=== PATIENT | male | born 1975 | race Caucasian/White ===

== ENCOUNTER 2024-06-09 08:21 | Outpatient (CLI) | payer BC, SELFPAY ==
--- NOTE | ~2024-06-09 | XR_ITS ---
EXAMINATION: XR shoulder RT min 2V DATE: 06/09/2024 08:57 INDICATION: Right shoulder pain TECHNIQUE: AP internally and externally rotated, AP oblique externally rotated and transscapular Y vi ews of the right shoulder were obtained. COMPARISON: None FINDINGS: Normal alignment. No fracture. Glenohumeral joint is normal. Moderate right acromioclavicular osteoa rthritis. Soft tissues are unremarkable. Visualized portion of the right lung are clear. IMPRESSION: Moderate right acromioclavicular osteoarthritis. Reviewed, dictated and finalized at location B.
== END 2024-06-09 08:22 | disposition home or self-care (01) ==
PROVIDERS: PCP Nurse Practitioner; Visit Provider Nurse Practitioner
DX: M19.011 Primary osteoarthritis, right shoulder (principal)
CPT/HCPCS: 73030

== ENCOUNTER 2025-04-09 02:08 | Day surgery (SDC) | payer BC, SELFPAY ==
[2025-03-23 14:23] VITALS: BMI 24.4
[2025-04-09 07:37] VITALS: BP 131/90; PULSE 85; RESP 16; TEMP 36.5; O2SAT 100
[2025-04-09] MEDS: LACTATED RINGERS 1,000 ML 150 ML IV CONT (07:45)
--- NOTE | 2025-04-09 07:52 | P.PNAN_ITS ---
Anes - Initial Pre Proc Eval Procedure: Operation Date: 04/09/25 09:00 Proposed Procedures p Screening Colonoscopy - Oliver Downing MD Date/Time: 04/09/25 07:52 Surgeon: Oliver Downing MD Pre Op Diagnosis: Encounter for screening for malignant neoplasm of Patient Data Age: 49 Gender: M Height: 1.8 m Weight: 80.3 kg Last Vital Signs Temp 36.5 C 04/09/25 07:37 Pulse 85 04/09/25 07:37 Resp 16 04/09/25 07:37 BP 131/90 04/09/25 07:37 Pulse Ox 100 04/09/25 07:37 O2 Del Method Room Air 04/09/25 07:37 Allergies Allergy/AdvReac Type Severity Reaction Status Date / Time No Known Allergies Allergy Verified 04/09/25 07:35 Home Medications ?Medication ?Instructions ?Recorded ?Confirmed ?Type valacyclovir 1 gram tablet 2,000 mg (2 x 1 gram) PO Q12H PRN 02/22/24 03/23/25 Rx (Valtrex) oral lesions #36 tabs bupropion HCl 150 mg 24 hr tablet, 150 mg PO QAM #90 tabs 12/06/24 04/09/25 Rx extended release lisinopril 40 mg tablet 40 mg PO DAILY #90 tabs 12/06/24 04/09/25 Rx alprazolam 0.25 mg tablet 0.25 mg PO DAILY PRN anxiety #90 01/18/25 04/09/25 Rx tabs Patient hx anesthesia problems: none Family hx anesthesia problems: none Results Review: All pre-operative results and documents have been reviewed as part of the pre- operative evaluation. [facility] Past Medical History Medical History Hypertension Allergies Family History Family History Mother Hypertension Father Hypertension Social History Social History (Updated 04/09/25 @ 07:57 by Gaston Turcios DO) Smoking status: Never smoker Second hand tobacco smoke exposure: Yes Alcohol intake: current Drinks per week: 10 Alcohol use details: 1-2 drinks/day Substance use: never Substance use type: does not use Current Housing: Decline to Answer Concerned About Future Housing: Decline to Answer Difficulty Paying Gas/Electric Bills: Decline to Answer Difficulty Paying for Meds: Decline to Answer Currently Unemployed: Decline to Answer Education: Decline to Answer Difficulty w/ Childcare or Family Care: Decline to Answer Living arrangements: with family Spiritual care concerns: No Anes - Eval Final PreProcedure Day of Procedure 04/09/25 07:52 Patient weight: normal Heart: regular rate and rhythm Lungs: clear to auscultation and normal air movement Airway: Mallampati scale class II Neurological: alert and oriented Last oral intake: >/= 8 hours ASA classification: III Emergent: no Anesthetic plan: proceed Anesthesia type and monitoring: general GIVS and standard monitoring Results Review: All pre-operative results and documents have been reviewed as part of the pre- operative evaluation. Informed Consent: The patient's anesthetic plan and its attendant risks and benefits were discussed with the patient/family/POA. Questions were solicited and answers provided to the satisfaction of the patient/family/POA.
--- NOTE | 2025-04-09 08:13 | PM.HPGS ---
History of Present Illness History of Present Illness Consent: Risks, benefits, and alternatives have been discussed and questions answered. Patient agrees to proceed with procedure. Chief complaint: Encounter for screening for malignant neoplasm of Narrative: Jonatan Lazo is a 49 year old male here for first screening colonoscopy Review of Systems Review of Systems: All systems reviewed & are unremarkable except as noted in HPI and below PMFSH Past Medical History Medical History Hypertension Allergies Family History Family History Mother Hypertension Father Hypertension Social History Social History (Updated 04/09/25 @ 07:57 by Gaston Turcios, ) Smoking status: Never smoker Second hand tobacco smoke exposure: Yes Alcohol intake: current Drinks per week: 10 Alcohol use details: 1-2 drinks/day Substance use: never Substance use type: does not use Current Housing: Decline to Answer Concerned About Future Housing: Decline to Answer Difficulty Paying Gas/Electric Bills: Decline to Answer Difficulty Paying for Meds: Decline to Answer Currently Unemployed: Decline to Answer Education: Decline to Answer Difficulty w/ Childcare or Family Care: Decline to Answer Living arrangements: with family Spiritual care concerns: No Meds Home Medications and Allergies Home Medications ?Medication ?Instructions ?Recorded ?Confirmed ?Type valacyclovir 1 gram tablet 2,000 mg (2 x 1 gram) PO Q12H PRN 02/22/24 03/23/25 Rx (Valtrex) oral lesions #36 tabs bupropion HCl 150 mg 24 hr tablet, 150 mg PO QAM #90 tabs 12/06/24 04/09/25 Rx extended release lisinopril 40 mg tablet 40 mg PO DAILY #90 tabs 12/06/24 04/09/25 Rx alprazolam 0.25 mg tablet 0.25 mg PO DAILY PRN anxiety #90 01/18/25 04/09/25 Rx tabs Allergies Allergy/AdvReac Type Severity Reaction Status Date / Time No Known Allergies Allergy Verified 04/09/25 07:35 Vital Signs Vital Signs - 24 hr 04/09/25 07:37 Temperature 97.7 F Pulse Rate 85 Respiratory Rate 16 Blood Pressure 131/90 Pulse Oximetry 100 Oxygen Delivery Room Air Exam Const: General: comfortable and no acute distress HENMT: Face/Nose/Sinus: Normal nares present Eyes: General: appearance normal, both eyes and all related structures Neck: Neck: no JVD Resp: Auscultation: clear to auscultation bilaterally Cardio: Rate: regular rate Rhythm: regular rhythm GI: Inspection: non-distended GI Palp: Yes Soft to palpation Skin: General skin exam: normal color Neuro: General: gait normal Speech: normal speech Extrem: General: normal to inspection Psych: Mental Status: mental status grossly normal Assessment and Plan Assessment and plan (1) Screening for colon cancer: Code(s): Z12.11 - Encounter for screening for malignant neoplasm of colon Status: Acute Assessment and Plan: colonoscopy
[2025-04-09 08:32] VITALS: BP 118/77; PULSE 75; RESP 13; O2SAT 100
[2025-04-09 08:42] VITALS: BP 116/76; PULSE 76; RESP 17; O2SAT 100
[2025-04-09 08:52] VITALS: BP 126/93; PULSE 73; RESP 18; O2SAT 100
== END 2025-04-09 09:02 | disposition home or self-care (01) ==
PROVIDERS: PCP Nurse Practitioner; Referring Provider Nurse Practitioner; Visit Provider Internal Medicine Gastroenterology
PROC: 0DJD8ZZ Inspection of Lower Intestinal Tract, Via Natural or Artificial Opening Endoscopic (ICD-10-PCS; CPT 45378; principal; 2025-04-09 09:00)
DX: Z12.11 Encounter for screening for malignant neoplasm of colon (principal); K64.8 Other hemorrhoids; K57.30 Diverticulosis of large intestine without perforation or abscess without bleeding; I10 Essential (primary) hypertension
CPT/HCPCS: 45378; J2704; J7120